=== PATIENT | female | born 1960 | race Caucasian/White ===

== ENCOUNTER 2018-04-02 18:16 | Emergency (ER) | payer MEDICAID ==
[~2018-04-02] VITALS: Ht 167.6 cm; Wt 120.0 kg
[2018-04-02] MEDS ORDERED: ATOR10TA69 PO (18:21)
[2018-04-02] MEDS ORDERED: CARV3.1242 PO (18:21)
[2018-04-02 20:21] VITALS: BP 150/89
== END 2018-04-02 20:52 | disposition home or self-care (01) ==
LOC: ER 18:46
DX: S60.211A Contusion of right wrist, initial encounter (principal); R07.81 Pleurodynia; F32.9 Major depressive disorder, single episode, unspecified; I10 Essential (primary) hypertension; Z79.899 Other long term (current) drug therapy; V49.88XA Car occupant (driver) (passenger) injured in other specified transport accidents, initial encounter; Y93.89 Activity, other specified; Y92.89 Other specified places as the place of occurrence of the external cause; Y99.8 Other external cause status
CPT/HCPCS: 71045; 73110; 73130; 99283